=== PATIENT | female | born 1945 | race Caucasian/White ===

== ENCOUNTER 2016-05-27 20:01 | Emergency (ER) | payer OTHER ==
[~2016-05-27 20:01] MED LIST: AMLODIPINE BESYL5 M1 PO; BENAZEPRIL HCL/1 TAB PO; BENAZEPRIL10 M1 GT; COREG12.5 MG PO; GOOD SENSE ASPI81 M3 PO; MOTRIN800 MG PO
[2016-05-27 20:45] LABS: BASOPHIL % 0.3 % (0-2); PLATELET COUNT 200 x10^3mcL (130-400); RED CELL DISTRIBUTION WIDTH 13.2 % (11.5-14.5)
[2016-05-27 20:55] LABS: CARBON DIOXIDE 29.1 mmol/L (21-32); CHLORIDE SERUM 102 mmol/L (98-107); CREATININE SERUM 0.7 mg/dL (0.6-1.0); GFR1 > 60 mL/min; GLUCOSE SERUM 137 mg/dL (74-106); POTASSIUM SERUM 3.7 mmol/L (3.5-5.1); SODIUM SERUM 138 mmol/L (136-145)
[2016-05-27 21:03] LABS: ALBUMIN 4.3 g/dL (3.4-5.0); ALKALINE PHOSPHATASE 62 U/L (46-116); ALT/SGPT 29 U/L (14-59); AST/SGOT 26 U/L (15-37); BILIRUBIN TOTAL 0.84 mg/dL (0.20-1.00); CHOLESTEROL 165 mg/dL (<200); HDL CHOLESTEROL 72 mg/dL (40-60); PHOSPHOROUS 3.2 mg/dL (2.5-4.9); TOTAL PROTEIN, SERUM 7.6 g/dL (6.4-8.2); URIC ACID 4.4 mg/dL (2.6-6.0)
[2016-05-27 23:14] VITALS: BP 140/70
== END 2016-05-27 23:10 | disposition home or self-care (01) ==
LOC: ED 20:01
PROVIDERS: Emergency Medicine
DX: I16.0 Hypertensive urgency (principal); G44.209 Tension-type headache, unspecified, not intractable; F41.9 Anxiety disorder, unspecified; Z79.899 Other long term (current) drug therapy
CPT/HCPCS: 83880; J1885; Q0092

== ENCOUNTER 2017-08-23 20:02 | Emergency (ER) | payer OTHER ==
[2017-08-23 21:10] LABS: BASOPHIL % 0.3 % (0-2); PLATELET COUNT 175 x10^3mcL (130-400); RED CELL DISTRIBUTION WIDTH 13.3 % (11.5-14.5)
[2017-08-23 21:18] LABS: CALCIUM 9.2 mg/dL (8.5-10.1); CARBON DIOXIDE 25.6 mmol/L (21-32); CHLORIDE SERUM 106 mmol/L (98-107); CREATININE SERUM 0.9 mg/dL (0.6-1.0); GLUCOSE SERUM 130 mg/dL (74-106); POTASSIUM SERUM 4.2 mmol/L (3.5-5.1); SODIUM SERUM 140 mmol/L (136-145)
[2017-08-23 21:22] LABS: ALBUMIN 3.9 g/dL (3.4-5.0); ALKALINE PHOSPHATASE 66 U/L (46-116); ALT/SGPT 24 U/L (14-59); AST/SGOT 27 U/L (15-37); BILIRUBIN TOTAL 0.37 mg/dL (0.20-1.00); TOTAL PROTEIN, SERUM 7.2 g/dL (6.4-8.2)
[2017-08-23 22:18] VITALS: BP 149/69
== END 2017-08-23 22:27 | disposition home or self-care (01) ==
LOC: ED 20:02
PROVIDERS: Emergency Medicine
DX: R51 Headache (principal); I10 Essential (primary) hypertension; Z90.49 Acquired absence of other specified parts of digestive tract; Z90.710 Acquired absence of both cervix and uterus
CPT/HCPCS: J2270; J2405; Q0092

== ENCOUNTER 2018-02-06 15:31 | Emergency (ER) | payer OTHER ==
[~2018-02-06] VITALS: Ht 165.1 cm; Wt 74.8 kg
[2018-02-06 15:32] VITALS: Ht 165.1 cm; Wt 74.8 kg
[2018-02-06 18:00] VITALS: BP 160/81
== END 2018-02-06 18:00 | disposition home or self-care (01) ==
LOC: ED 15:31
DX: M62.830 Muscle spasm of back (principal); F41.9 Anxiety disorder, unspecified; I10 Essential (primary) hypertension
CPT/HCPCS: 20552; J1885; J2001

== ENCOUNTER 2019-01-19 16:30 | Emergency (ER) | payer OTHER ==
[~2019-01-19] VITALS: Ht 154.9 cm; Wt 57.2 kg
[2019-01-19 16:45] VITALS: Ht 154.9 cm; Wt 57.2 kg
[2019-01-19 18:35] LABS: BASOPHIL % 0.4 % (0-2); PLATELET COUNT 186 x10^3mcL (130-400)
[2019-01-19 18:43] LABS: CALCIUM 8.8 mg/dL (8.5-10.1); CARBON DIOXIDE 30.4 mmol/L (21-32); CHLORIDE SERUM 101 mmol/L (98-107); CREATININE SERUM 0.8 mg/dL (0.6-1.0); GLUCOSE SERUM 110 mg/dL (74-106); POTASSIUM SERUM 4.9 mmol/L (3.5-5.1); SODIUM SERUM 138 mmol/L (136-145)
[2019-01-19 18:48] LABS: ALKALINE PHOSPHATASE 64 U/L (46-116); ALT/SGPT 32 U/L (14-59); AST/SGOT 25 U/L (15-37); BILIRUBIN TOTAL 0.4 mg/dL (0.20-1.00); TOTAL PROTEIN, SERUM 7.7 g/dL (6.4-8.2)
[2019-01-19 20:25] VITALS: BP 147/76
== END 2019-01-19 20:25 | disposition home or self-care (01) ==
LOC: ED 16:30
PROVIDERS: Emergency Medicine
DX: R10.30 Lower abdominal pain, unspecified (principal); R11.0 Nausea; R51 Headache; I16.0 Hypertensive urgency
CPT/HCPCS: J0360; J1885; Q0162

== ENCOUNTER 2019-01-20 15:24 | Emergency (ER) | payer OTHER ==
[~2019-01-20] VITALS: Ht 154.9 cm; Wt 64.9 kg
[2019-01-20 15:35] VITALS: Ht 154.9 cm; Wt 64.9 kg
[2019-01-20 18:05] VITALS: BP 161/74
== END 2019-01-20 18:41 | disposition home or self-care (01) ==
LOC: ED 15:24
DX: I10 Essential (primary) hypertension (principal); R51 Headache; R73.9 Hyperglycemia, unspecified; Z90.89 Acquired absence of other organs; Z90.710 Acquired absence of both cervix and uterus
CPT/HCPCS: J0360; Q0162